=== PATIENT | female | born 1935 | race Caucasian/White ===

== ENCOUNTER 2017-02-20 08:50 | Observation (INO) | payer OTHER ==
[2017-02-20] VITALS (15 sets, daily range): BP systolic 120–166; BP diastolic 65–94; PULSE 56–76; RESP 16–19; TEMP 97.9–98.1; O2SAT 97–100
[~2017-02-20] VITALS: Ht 162.6 cm; Wt 73.5 kg
[2017-02-20] MEDS ORDERED: METO25TA3 PO ×2 (09:37→13:46)
[2017-02-20] MEDS ORDERED: AMLO5TAB2 PO ×2 (09:37→13:46)
[2017-02-20] MEDS ORDERED: SODIUM CHLORIDE 0.9% FLUSH 10 ML FLUSH IVF PRN (09:45)
--- NOTE | 2017-02-20 09:55 | PD ---
HPI Chief Complaint: Pain: Acute or Chronic Time Seen by Provider: 09:45 Travel History International Travel<30 days: No Contact w/Intl Traveler<30days: No Traveled to known affect area: No History of Present Illness HPI 81-year-old female with history of hypertension, recently had a cardiac workup done in [place] where she lives which showed an equivocal stress tests, presents to the ER today for intermittent episodes of chest discomfort which she describes as a burning, palpitations, anxiety, shortness of breath, and nausea. She states that she would not describe the discomfort as a pain. She states that it comes and goes and has subsided currently. She does not know any exacerbating or alleviating factors although she did eat this morning before the symptoms started. She had discussed the discomfort with her son and they had talked briefly with Dr. Hamm and she was told to come to the ER for further evaluation. Patient states that she had recently been put on metoprolol after distress testing and states that she thinks it may be a side effect of the metoprolol. Modifying Factors: None Associated Signs & Symptoms: Substernal discomfort, anxiety, palpitations, shortness of breath, nausea Risk Factors: Hypertension PFSH Past Medical History Hx Anticoagulant Therapy: Yes (asa) Cardiovascular Problems: Yes (htn) High Cholesterol: Yes Diminished Hearing: No Hypertension: Yes Influenza Vaccination: Yes Past Surgical History Gynecologic Surgery: Yes (hysterectomy) Social History Alcohol Use: Yes (social) Tobacco Use: No Substance Use: No Allergies-Medications (Allergen,Severity, Reaction): Coded Allergies: Cipro (Verified Allergy, Severe, chest pain, 02/20/17) Reported Meds & Prescriptions Reported Meds & Active Scripts Active Reported Amlodipine (Amlodipine Besylate) 5 Mg Tab 5 Mg PO DAILY Metoprolol Tartrate 25 Mg Tab 25 Mg PO DAILY Review of Systems Except as stated in HPI: all other systems reviewed are Neg Physical Exam Narrative GENERAL: Pleasant elderly white female patient currently in no acute distress on evaluation. Awake and oriented 3. SKIN: Focused skin assessment warm/dry. HEAD: Atraumatic. Normocephalic. EYES: Pupils equal and round. No scleral icterus. No injection or drainage. ENT: No nasal bleeding or discharge. Mucous membranes pink and moist. NECK: Trachea midline. No JVD. CARDIOVASCULAR: Regular rate and rhythm. No murmur appreciated. Pulses are present and equal bilaterally. RESPIRATORY: No accessory muscle use. Clear to auscultation. Breath sounds equal bilaterally. GASTROINTESTINAL: Abdomen soft, non-tender, nondistended. Hepatic and splenic margins not palpable. MUSCULOSKELETAL: No obvious deformities. No clubbing. No cyanosis. No edema. NEUROLOGICAL: Awake and alert. No obvious cranial nerve deficits. Motor grossly within normal limits. Normal speech. PSYCHIATRIC: Appropriate mood and affect; insight and judgment normal. Data Data Last Documented VS Vital Signs Date Time Temp Pulse Resp B/P Pulse Ox O2 Delivery O2 Flow Rate FiO2 02/20/17 11:28 145/65 02/20/17 11:28 73 100 Nasal Cannula 2 02/20/17 09:38 19 02/20/17 08:52 98.1 Orders Electrocardiogram (02/20/17 09:45) B-Type Natriuretic Peptide (02/20/17 09:45) Ckmb (Isoenzyme) Profile (02/20/17 09:45) Complete Blood Count With Diff (02/20/17 09:45) Comprehensive Metabolic Panel (02/20/17 09:45) D-Dimer (02/20/17 09:45) Magnesium (Mg) (02/20/17 09:45) Prothrombin Time / Inr (Pt) (02/20/17 09:45) Act Partial Throm Time (Ptt) (02/20/17 09:45) Troponin I (02/20/17 09:45) Chest, Single Ap (02/20/17 09:45) Ecg Monitoring (02/20/17 09:45) Bilateral Bp Monitoring (02/20/17 09:45) Iv Access Insert/Monitor (02/20/17 09:45) Oximetry (02/20/17 09:45) Oxygen Administration (02/20/17 09:45) Sodium Chloride 0.9% Flush (Ns Flush) (02/20/17 09:45) Admit Order (Ed Use Only) (02/20/17 11:30) Consult Cardiology (02/20/17 ) Place In Observation (02/20/17 ) Vital Signs (Adult) Q4H (02/20/17 11:30) Activity Oob With Assistance (02/20/17 11:30) Protocol Manager / Telemetry .CONTINUOUS (02/20/17 11:30) Diet Npo (02/20/17 Lunch) Sodium Chlor 0.45% 1000 Ml Inj (1/2 Ns 1 (02/20/17 11:30) Sodium Chloride 0.9% Flush (Ns Flush) (02/20/17 11:30) Sodium Chloride 0.9% Flush (Ns Flush) (02/20/17 21:00) Ondansetron Inj (Zofran Inj) (02/20/17 11:30) Troponin I (02/20/17 17:00) Troponin I (02/20/17 23:00) Resp Oxygen Anupam C Titrat 1-4 L (02/20/17 ) Enoxaparin Inj (Lovenox Inj) (02/20/17 11:30) Naloxone Inj (Narcan Inj) (02/20/17 11:30) Labs Laboratory Tests Test 02/20/17 09:45 White Blood Count 9.4 TH/MM3 Red Blood Count 4.76 MIL/MM3 Hemoglobin 13.9 GM/DL Hematocrit 41.1 % Mean Corpuscular Volume 86.3 FL Mean Corpuscular Hemoglobin 29.1 PG Mean Corpuscular Hemoglobin 33.7 % Concent Red Cell Distribution Width 14.0 % Platelet Count 271 TH/MM3 Mean Platelet Volume 8.6 FL Neutrophils (%) (Auto) 71.7 % Lymphocytes (%) (Auto) 22.6 % Monocytes (%) (Auto) 5.0 % Eosinophils (%) (Auto) 0.3 % Basophils (%) (Auto) 0.4 % Neutrophils # (Auto) 6.8 TH/MM3 Lymphocytes # (Auto) 2.1 TH/MM3 Monocytes # (Auto) 0.5 TH/MM3 Eosinophils # (Auto) 0.0 TH/MM3 Basophils # (Auto) 0.0 TH/MM3 CBC Comment DIFF FINAL Differential Comment Prothrombin Time 10.8 SEC Prothromb Time International 1.0 RATIO Ratio Activated Partial 26.1 SEC Thromboplast Time D-Dimer Quantitative (PE/DVT) 0.50 MG/L FEU Sodium Level 140 MEQ/L Potassium Level 3.4 MEQ/L Chloride Level 104 MEQ/L Carbon Dioxide Level 27.9 MEQ/L Anion Gap 8 MEQ/L Blood Urea Nitrogen 12 MG/DL Creatinine 0.77 MG/DL Estimat Glomerular Filtration 72 ML/MIN Rate Random Glucose 104 MG/DL Calcium Level 9.7 MG/DL Magnesium Level 2.2 MG/DL Total Bilirubin 0.7 MG/DL Aspartate Amino Transf 21 U/L (AST/SGOT) Alanine Aminotransferase 23 U/L (ALT/SGPT) Alkaline Phosphatase 112 U/L Total Creatine Kinase 94 U/L Troponin I LESS THAN 0.02 NG/ML B-Type Natriuretic Peptide 49 PG/ML Total Protein 8.1 GM/DL Albumin 4.5 GM/DL MDM Medical Decision Making Medical Screen Exam Complete: Yes Emergency Medical Condition: Yes Medical Record Reviewed: Yes Interpretation(s) Laboratory Tests Test 02/20/17 09:45 Neutrophils (%) (Auto) 71.7 % (16.0-70.0) Potassium Level 3.4 MEQ/L (3.5-5.1) Estimat Glomerular Filtration 72 ML/MIN (>89) Rate Troponin I LESS THAN 0.02 NG/ML (0.02-0.05) Laboratory Tests Test 02/20/17 09:45 Neutrophils (%) (Auto) 71.7 % (16.0-70.0) Potassium Level 3.4 MEQ/L (3.5-5.1) Estimat Glomerular Filtration 72 ML/MIN (>89) Rate Troponin I LESS THAN 0.02 NG/ML (0.02-0.05) Last 24 hours Impressions Chest X-Ray 02/20/17 0945 Signed Impressions: Service Date/Time: Monday, February 20, 2017 09:46 - CONCLUSION: The lungs are clear. Vinicius Stewart MD Differential Diagnosis Chest discomfort, nausea, shortness of breath, palpitations, anxiety dysrhythmias versus ACS versus gastroesophageal reflux versus anxiety attack Narrative Course Lab work is unremarkable. Chest x-ray and EKG is unremarkable. Patient has had a workup which showed equivocal stress test. Case was discussed with Dr. Hamm who would like me to medically admit the patient for catheterization this afternoon. Nothing by mouth. Case was then discussed with Dr. Gallagher for admission. Patient had already taken her own aspirin before she came to the ER full dose 325 mg. Diagnosis Primary Impression: Chest pain Admitting Information Admitting Physician Requests: Admit Ghazal Dunaway MD Feb 20, 2017 09:55
[2017-02-20 10:00] LABS: AUTOMATED NEUTROPHIL # 6.8 TH/MM3 (1.8-7.7); BASOPHIL % 0.4 % (0.0-2.0); EOSINOPHIL % 0.3 % (0.0-4.0); HEMATOCRIT 41.1 % (35.0-46.0); HEMO FLAGS DIFF FINAL; LYMPH % 22.6 % (9.0-44.0); LYMPHOCYTE # 2.1 TH/MM3 (1.0-4.8); MEAN CELL VOLUME 86.3 FL (80.0-100.0); MEAN CORPUSCULAR HEMOGLOBIN 29.1 PG (27.0-34.0); MEAN CORPUSCULAR HGB CONC 33.7 % (32.0-36.0); NEUT % 71.7 % (16.0-70.0); PLATELET COUNT 271 TH/MM3 (150-450); RED BLOOD COUNT 4.76 MIL/MM3 (4.00-5.30); WHITE BLOOD COUNT 9.4 TH/MM3 (4.0-11.0)
--- NOTE | 2017-02-20 10:14 | RADRPT ---
EXAM DATE/TIME: 02/20/2017 09:46 [facility] COMPARISON: No previous studies available for comparison. INDICATIONS : Heaviness in chest, and bilateral posterior shoulder pain. MEDICAL HISTORY : None. SURGICAL HISTORY : None. ENCOUNTER: Initial ACUITY: 2 days PAIN SCORE: 0/10 LOCATION: Bilateral chest FINDINGS: A single view of the chest demonstrates the lungs to be symmetrically aerated without evidence of mas s, infiltrate or effusion. The cardiomediastinal contours are unremarkable. Osseous structures are intact. CONCLUSION: The lungs are clear. Vinicius Stewart MD on February 20, 2017 at 10:12 Board Certified Radiologist. This report was verified electronically.
[2017-02-20 10:17] LABS: ALT (GPT) 23 U/L (10-53); ANION GAP 8 MEQ/L (5-15); AST (GOT) 21 U/L (15-37); BICARBONATE 27.9 MEQ/L (21.0-32.0); BLOOD UREA NITROGEN 12 MG/DL (7-18); CHLORIDE 104 MEQ/L (98-107); GLOMERULAR FILTRATION RATE 72 ML/MIN (>89); MAGNESIUM 2.2 MG/DL (1.5-2.5); POTASSIUM 3.4 MEQ/L (3.5-5.1); SODIUM (NA) 140 MEQ/L (136-145)
[2017-02-20 10:18] LABS: APTT (PATIENT) 26.1 SEC (24.3-30.1); PROTHROMBIN TIME - PATIENT 10.8 SEC (9.8-11.6)
[2017-02-20 10:22] LABS: ALKALINE PHOSPHATASE 112 U/L (45-117); TOTAL BILIRUBIN ADULT 0.7 MG/DL (0.2-1.0)
[2017-02-20 10:31] LABS: CREATINE KINASE 94 U/L (26-192)
[2017-02-20] MEDS ORDERED: ONDANSETRON HCL 4 MG/2 ML VIAL IVP PRN (11:30)
[2017-02-20] MEDS ORDERED: SODIUM CHLOR 0.45% 1000 ML INJ 1,000 ML IV SCH (11:30)
[2017-02-20] MEDS ORDERED: SODIUM CHLORIDE 0.9% FLUSH 10 ML FLUSH IV FLUSH PRN (11:30)
[2017-02-20] MEDS ORDERED: NALOXONE HCL 0.4 MG/ML AMP IV PRN (11:30)
[2017-02-20] MEDS: SODIUM CHLORIDE 0.9% FLUSH 10 ML FLUSH IV FLUSH SCH (12:33)
--- NOTE | 2017-02-20 12:59 | HHI.HP ---
[facility] Service [facility] Primary Care Physician Non-Staff Admission Diagnosis atypical chest pain Diagnoses: Chief Complaint: Nonspecific type pain Travel History International Travel<30 Days: No Contact w/Intl Traveler <30 Da: No Traveled to Known Affected Are: No History of Present Illness This is a 81-year-old female past medical history hypertension and hyperlipidemia who presented with nonspecific type symptoms. She said about a month ago she had left shoulder pain in which she went to the hospital and [place] and had a cardiac workup. Workup included chest x-ray, echo, CT scan which were all negative. Patient was seen as outpatient and had a nuclear stress test done which was relatively negative. Patient stated that after the workup she was put on metoprolol and feels like the metoprolol is causing her symptoms. Patient stated that she would take deep breaths and will feel a sense of weakness around her chest. She stated that she also feels fatigue. Patient stated that this is intermittent and resolves on its own. Patient also had a recent episode of epigastric pain that was described as a burning sensation as if she had acid reflux. Patient stated that lasted all night. She stated that she lost her appetite the last day and she doesn't know why. Patient denies any stress or anxiety. She stated that her mother had history of heart attack at the age of 63 and her father had multiple heart attacks at the age of 60. Deny any tobacco use. Review of Systems Constitutional: DENIES: Diaphoretic episodes, Fatigue, Fever, Weight gain, Weight loss, Chills, Dizziness, Change in appetite, Night Sweats Endocrine: DENIES: Abnorml menstrual pattern, Heat/cold intolerance, Polydipsia , Polyuria, Polyphagia Eyes: DENIES: Blurred vision, Diplopia, Eye inflammation, Eye pain, Vision loss , Photosensitivity, Double Vision Ears, nose, mouth, throat: DENIES: Tinnitus, Hearing loss, Vertigo, Nasal discharge, Oral lesions, Throat pain, Hoarseness, Ear Pain, Running Nose, Epistaxis, Sinus Pain, Toothache, Odynophagia Respiratory: DENIES: Apneas, Cough, Snoring, Wheezing, Hemoptysis, Sputum production, Shortness of breath Cardiovascular: DENIES: Chest pain, Palpitations, Syncope, Dyspnea on Exertion , PND, Lower Extremity Edema, Orthopnea, Claudication Gastrointestinal: DENIES: Abdominal pain, Black stools, Bloody stools, Constipation, Diarrhea, Nausea, Vomiting, Difficulty Swallowing, Anorexia Genitourinary: DENIES: Abnormal vaginal bleeding, Dysmenorrhea, Dyspareunia, Sexual dysfunction, Urinary frequency, Urinary incontinence, Urgency, Hematuria , Dysuria, Nocturia, Vaginal discharge Musculoskeletal: DENIES: Joint pain, Muscle aches, Stiffness, Joint Swelling, Back pain, Neck pain Integumentary: DENIES: Abnormal pigmentation, Pruritus, Rash, Nail changes, Breast masses, Breast skin changes, Nipple discharge Hematologic/lymphatic: DENIES: Bruising, Lymphadenopathy Immunologic/allergic: DENIES: Eczema, Urticaria Neurologic: DENIES: Abnormal gait, Headache, Localized weakness, Paresthesias, Seizures, Speech Problems, Tremor, Poor Balance Psychiatric: DENIES: Anxiety, Confusion, Mood changes, Depression, Hallucinations, Agitation, Suicidal Ideation, Homicidal Ideation, Delusions Past Family Social History Past Medical History Hypertension Hyperlipidemia Past Surgical History Bilateral knee replacement Reported Medications Reported Meds & Active Scripts Active Reported Amlodipine (Amlodipine Besylate) 5 Mg Tab 5 Mg PO DAILY Metoprolol Tartrate 25 Mg Tab 25 Mg PO DAILY Allergies: Coded Allergies: Cipro (Verified Allergy, Severe, chest pain, 02/20/17) Active Ordered Medications Current Medications Sodium Chloride 2 ml 2 ml UNSCH PRN IVF FLUSH AFTER USING IV ACCESS Last administered on 02/20/17 10:43; Start 02/20/17 at 09:45; Stop 02/20/17 at 11:51 ; Status DC Sodium Chloride (1/2 NS 1000 ml Inj) 1,000 ml @ 75 mls/hr [id number] IV Last administered on 02/20/17 12:32; Start 02/20/17 at 11:30 Sodium Chloride (NS Flush) 2 ml UNSCH PRN IV FLUSH FLUSH AFTER USING IV ACCESS ; Start 02/20/17 at 11:30 Sodium Chloride (NS Flush) 2 ml BID IV FLUSH Last administered on 02/20/17 12: 33; Start 02/20/17 at 21:00 Ondansetron HCl (Zofran Inj) 4 mg Q6H PRN IVP NAUSEA OR VOMITING; Start at 11:30 Enoxaparin Sodium (Lovenox Inj) 40 mg Q24H SQ Last administered on 02/20/17t 12 :33; Start 02/20/17 at 13:00 Naloxone HCl (Narcan Inj) 0.4 mg UNSCH PRN IV SEE LABEL COMMENTS; Start at 11:30 Family History Mother history of heart attack the age of 63. Father had a history of heart attacks age of 60s. Social History Patient lives with her in [facility]. Deny any tobacco or illicit drug use. Occasionally drinks a wine glass a week. Physical Exam Vital Signs Vital Signs Date Time Temp Pulse Resp B/P Pulse Ox O2 Delivery O2 Flow Rate FiO2 02/20/17 11:28 145/65 02/20/17 11:28 73 145/65 100 Nasal Cannula 2 02/20/17 11:28 100 Nasal Cannula 2 02/20/17 11:27 76 145/65 02/20/17 09:38 74 19 166/94 100 Room Air 02/20/17 08:52 98.1 75 16 164/82 98 Physical Exam GENERAL: This is a well-nourished, well-developed patient, in no apparent distress. SKIN: No rashes, ecchymoses or lesions. Cool and dry. HEAD: Atraumatic. Normocephalic. No temporal or scalp tenderness. EYES: Pupils equal round and reactive. Extraocular motions intact. No scleral icterus. No injection or drainage. ENT: Nose without bleeding, purulent drainage or septal hematoma. Throat without erythema, tonsillar hypertrophy or exudate. Uvula midline. Airway patent. NECK: Trachea midline. No JVD or lymphadenopathy. Supple, nontender, no meningeal signs. CARDIOVASCULAR: Regular rate and rhythm without murmurs, gallops, or rubs. RESPIRATORY: Clear to auscultation. Breath sounds equal bilaterally. No wheezes , rales, or rhonchi. GASTROINTESTINAL: Abdomen soft, non-tender, nondistended. No hepato-splenomegaly , or palpable masses. No guarding. MUSCULOSKELETAL: Extremities without clubbing, cyanosis, or edema. No joint tenderness, effusion, or edema noted. No calf tenderness. Negative Homans sign bilaterally. NEUROLOGICAL: Awake and alert. Cranial nerves II through XII intact. Motor and sensory grossly within normal limits. Five out of 5 muscle strength in all muscle groups. Normal speech. Laboratory Laboratory Tests Test 02/20/17 09:45 White Blood Count 9.4 Red Blood Count 4.76 Hemoglobin 13.9 Hematocrit 41.1 Mean Corpuscular Volume 86.3 Mean Corpuscular Hemoglobin 29.1 Mean Corpuscular Hemoglobin 33.7 Concent Red Cell Distribution Width 14.0 Platelet Count 271 Mean Platelet Volume 8.6 Neutrophils (%) (Auto) 71.7 Lymphocytes (%) (Auto) 22.6 Monocytes (%) (Auto) 5.0 Eosinophils (%) (Auto) 0.3 Basophils (%) (Auto) 0.4 Neutrophils # (Auto) 6.8 Lymphocytes # (Auto) 2.1 Monocytes # (Auto) 0.5 Eosinophils # (Auto) 0.0 Basophils # (Auto) 0.0 CBC Comment DIFF FINAL Differential Comment Prothrombin Time 10.8 Prothromb Time International 1.0 Ratio Activated Partial 26.1 Thromboplast Time D-Dimer Quantitative (PE/DVT) 0.50 Sodium Level 140 Potassium Level 3.4 Chloride Level 104 Carbon Dioxide Level 27.9 Anion Gap 8 Blood Urea Nitrogen 12 Creatinine 0.77 Estimat Glomerular Filtration 72 Rate Random Glucose 104 Calcium Level 9.7 Magnesium Level 2.2 Total Bilirubin 0.7 Aspartate Amino Transf 21 (AST/SGOT) Alanine Aminotransferase 23 (ALT/SGPT) Alkaline Phosphatase 112 Total Creatine Kinase 94 Troponin I LESS THAN 0.02 B-Type Natriuretic Peptide 49 Total Protein 8.1 Albumin 4.5 Result Diagram: 02/20/1745 02/20/17944 Imaging Last Impressions Chest X-Ray 02/20/17944 Signed Impressions: Service Date/Time: Monday, February 20, 2017 09:46 - CONCLUSION: The lungs are clear. Vinicius Stewart MD Assessment and Plan Assessment and Plan 81-year-old female with hypertension hyperlipidemia who presented with Atypical chest pain -Previous workup is negative. [employer] Helper consulted since patient has extensive family history of heart attacks, and she has hypertension and hyperlipidemia. -Continue with metoprolol at a lower dose. -First set of troponins negative. Will trend troponin and monitor over telemetry. Hypertension/hyperlipidemia -Resume home medication. DVT prophylaxis -Lovenox. Rica Gallagher MD Feb 20, 2017 12:59
[2017-02-20] MEDS ORDERED: ENOXAPARIN SODIUM 40 MG/0.4 ML SYRINGE SQ SCH (13:00)
[2017-02-20] MEDS ORDERED: METOPROLOL TARTRATE 25 MG TAB PO SCH (13:00)
[2017-02-20] MEDS ORDERED: PILL SPLITTER OTHER PRN (13:15)
[2017-02-20] MEDS: amLODIPine BESYLATE 5 MG TAB PO SCH (13:38)
[2017-02-20] MEDS ORDERED: OSTETAB3 (13:46)
[2017-02-20] MEDS ORDERED: ASPI-110 PO (13:46)
[2017-02-20] MEDS ORDERED: ALPR.25 PO (13:46)
[2017-02-20] MEDS ORDERED: VITASPR (13:46)
[2017-02-20] MEDS ORDERED: VITA500T49 PO (13:46)
[2017-02-20] MEDS ORDERED: ATOR20TA15 PO (13:46)
[2017-02-20] MEDS ORDERED: IOHEXOL 350 MG/ML 100 ML BTL (for Cath Lab) OTHER ONE (14:06)
[2017-02-20] MEDS ORDERED: HEPARIN-NS/PF INJ 500 ML ONE (14:07)
[2017-02-20] MEDS ORDERED: MIDAZOLAM HCL 2 MG/2 ML VIAL ONE ×2 (14:09→14:32)
--- NOTE | 2017-02-20 14:34 | EKG ---
Date Performed: 02/20/2017 Time Performed: 10:16:46 PTAGE: 81 years EKG: BASELINE ARTIFACT PRESENT. Sinus rhythm LOW QRS VOLTAGE IN PRECORDIAL LEADS LEFT ANTERIOR FASCICULAR BLOCK POSSIBLE ANTERIOR MYOCARDIAL INFA RCTION ABNORMAL ECG NO PREVIOUS TRACING DOCTOR: César Barrett Interpretating Date/Time 02/20/2017 14:32:37
[2017-02-20] MEDS ORDERED: HEPARIN SODIUM - IV 10,000 UNITS/10 ML VIAL ONE (14:46)
[2017-02-20] MEDS ORDERED: NITROGLYCERIN INJ 5 ML ONE (14:46)
[2017-02-20] MEDS ORDERED: TICAGRELOR 90 MG TAB PO ONE (15:19)
[2017-02-20] MEDS ORDERED: SODIUM CHLOR 0.9% 1000 ML INJ 1,000 ML IV SCH (15:36)
[2017-02-20] MEDS ORDERED: MISC INFORMATION XX ONE (15:45)
[2017-02-20] MEDS ORDERED: ACETAMINOPHEN 325 MG TAB PO PRN (15:45)
--- NOTE | 2017-02-20 16:43 | MB ---
cc: KENNETH W[place] DATE OF CONSULTATION 02/20/17 HISTORY OF PRESENT ILLNESS Ms. Jerez is a very pleasant 81 year old white female with history of hypertension and dyslipidemia. She was seen in [facility] one month ago. She had a stress test, echocardiogram and CT scan which were unremarkable. She presented with recurrent chest pressure and also burning epigastric discomfort. She has family history of heart disease. PAST MEDICAL HISTORY 1. Hypertension 2. Dyslipidemia 3. Bilateral knee replacement No history of diabetes mellitus, coronary artery disease or cerebrovascular accident. MEDICATIONS 1. Metoprolol 25 mg a day 2. Amlodipine 5 mg a day ALLERGIES CIPRO SOCIAL HISTORY The patient does not smoke. She drinks wine occasionally. She is accompanied by her . FAMILY HISTORY Positive for heart disease in both parents. REVIEW OF SYSTEMS Otherwise negative. PHYSICAL EXAMINATION VITAL SIGNS: Blood pressure 121/74, pulse 73 and regular. HEENT: Negative, 2+ carotid upstrokes, no bruits. LUNGS: Clear. HEART: Regular with no murmurs, rubs or gallops ABDOMEN: Soft, no bruits. EXTREMITIES: Without edema, 2+ distal pulses. NEUROLOGIC: Grossly nonfocal. CARDIOLOGY STUDIES Electrocardiogram was reviewed and showed sinus rhythm, left axis, left anterior fascicular block and abnormal RV progression over precordial leads. LABORATORY DATA Hemoglobin 13.9, potassium 3.4, creatinine 0.8. CK and troponin normal. AST and ALT normal. DIAGNOSES 1. Unstable angina 2. Hypertension 3. Dyslipidemia 4. Strong family history of coronary artery disease DISP8 Ms. Jerez will undergo cardiac catheterization and coronary intervention if necessary today. She understands the risks and benefits and wishes to proceed. MD NAEEM Sawyer/ /1:49 PM /4:36 PM ROSELYN
[2017-02-20 17:05] LABS: HDL CHOLESTEROL 96.9 MG/DL (40.0-60.0)
[2017-02-20] MEDS: CARVEDILOL 6.25 MG TAB PO SCH (20:15)
[2017-02-20] MEDS ORDERED: TEMAZEPAM 15 MG CAP PO PRN (21:00)
[2017-02-20] MEDS ORDERED: ATORVASTATIN 40 MG TAB PO SCH (21:00)
--- NOTE | 2017-02-20 23:18 | EKG ---
Date Performed: 02/20/2017 Time Performed: 15:56:54 PTAGE: 81 years EKG: Sinus bradycardia. Left axis deviation Possible anterior infarct - age undetermined Abnorma l ECG PREVIOUS TRACING : 02/20/2017 10.16 Compared to prior tracing no significant change DOCTOR: Jeffy Holt Interpretating Date/Time 02/20/2017 23:17:29
[2017-02-21] VITALS (16 sets, daily range): BP systolic 107–125; BP diastolic 58–74; PULSE 53–68; RESP 16–18; TEMP 97.9–98.4; O2SAT 95–98
[2017-02-21 06:18] LABS: BASOPHIL % 0.6 % (0.0-2.0); EOSINOPHIL # 0.1 TH/MM3 (0-0.4); EOSINOPHIL % 0.9 % (0.0-4.0); HEMATOCRIT 33.9 % (35.0-46.0); HEMO FLAGS DIFF FINAL; LYMPH % 26.3 % (9.0-44.0); LYMPHOCYTE # 1.7 TH/MM3 (1.0-4.8); MEAN CELL VOLUME 86.8 FL (80.0-100.0); MEAN CORPUSCULAR HEMOGLOBIN 28.7 PG (27.0-34.0); MEAN CORPUSCULAR HGB CONC 33.1 % (32.0-36.0); MONO % 9.2 % (0.0-8.0); PLATELET COUNT 187 TH/MM3 (150-450); RED BLOOD COUNT 3.91 MIL/MM3 (4.00-5.30); RED CELL DISTRIBUTION WIDTH 13.8 % (11.6-17.2); WHITE BLOOD COUNT 6.3 TH/MM3 (4.0-11.0)
[2017-02-21 07:15] LABS: BICARBONATE 27.7 MEQ/L (21.0-32.0); POTASSIUM 3.2 MEQ/L (3.5-5.1)
[2017-02-21] MEDS: amLODIPine BESYLATE 5 MG TAB PO SCH (08:58)
[2017-02-21] MEDS: CARVEDILOL 6.25 MG TAB PO SCH (08:58)
[2017-02-21] MEDS: SODIUM CHLORIDE 0.9% FLUSH 10 ML FLUSH IV FLUSH SCH (08:58)
[2017-02-21] MEDS ORDERED: ASPIRIN 81 MG CHEW TAB PO SCH (09:00)
[2017-02-21] MEDS ORDERED: TICAGRELOR 90 MG TAB PO SCH (09:00)
[2017-02-21] MEDS ORDERED: POTASSIUM CHLORIDE 20 MEQ CONTROLLED RELEASE TAB PO ONE (09:00)
[2017-02-21] MEDS ORDERED: FAMOTIDINE 20 MG TAB PO SCH (12:00)
--- NOTE | 2017-02-21 15:37 | PD.CARD.PN ---
Subjective Subjective Remarks No CP or SOB, feels well Objective Medications Current Medications Medications (Trade) Dose Ordered Sig/Andrew Route Start Time Stop Time Status Last Admin (NS Flush) 2 ml UNSCH PRN IV FLUSH 02/20/17 11:30 (NS Flush) 2 ml BID IV FLUSH 02/20/17 21:00 02/21/17 08:58 (Zofran Inj) 4 mg Q6H PRN IVP 02/20/17 11:30 (Narcan Inj) 0.4 mg UNSCH PRN IV 02/20/17 11:30 (Norvasc) 5 mg DAILY PO 02/20/17 13:00 02/21/17 08:58 (Pill Splitter) 1 ea UNSCH PRN OTHER 02/20/17 13:15 (Tylenol) 325 mg Q4H PRN PO 02/20/17 15:45 02/21/17 00:54 (Restoril) 15 mg HS PRN PO 02/20/17 21:00 02/20/17 20:23 (Aspirin Chew) 81 mg DAILY PO 02/21/17 09:00 02/21/17 08:58 (Brilinta) 90 mg BID PO 02/21/17 09:00 02/21/17 08:58 (Coreg) 6.25 mg BID PO 02/20/17 21:00 02/21/17 08:58 (Lipitor) 40 mg HS PO 02/20/17 21:00 02/20/17 20:15 (Pepcid) 20 mg BID PO 02/21/17 12:00 02/21/17 12:50 Vital Signs / I&O Vital Signs Date Time Temp Pulse Resp B/P Pulse Ox O2 Delivery O2 Flow Rate FiO2 02/21/17 13:00 68 02/21/17 12:00 60 02/21/17 11:30 97.9 61 18 120/74 98 02/21/17 11:00 58 02/21/17 10:00 66 02/21/17 09:00 66 02/21/17 08:44 95 21 02/21/17 08:00 56 02/21/17 07:15 98.4 67 18 108/58 98 02/21/17 07:00 57 02/21/17 05:00 58 02/21/17 04:00 98.0 56 16 125/66 96 02/21/17 04:00 53 02/21/17 03:00 56 02/21/17 02:00 59 02/21/17 01:00 58 02/21/17 00:00 97.9 58 16 107/72 96 02/21/17 00:00 63 02/20/17 23:00 58 02/20/17 22:00 62 02/20/17 21:50 98 21 02/20/17 21:00 60 02/20/17 20:00 62 02/20/17 20:00 98.0 72 16 128/77 99 02/20/17 19:00 64 02/20/17 18:00 56 02/20/17 17:00 62 02/20/17 16:18 97.9 67 16 120/70 99 02/20/17 15:40 99 Room Air I/O 02/20/17 02/20/17 02/20/17 02/21/17 02/21/17 02/21/17 07:00 15:00 23:00 07:00 15:00 23:00 Intake Total 240 ml 240 ml Output Total 400 ml Balance -160 ml 240 ml Intake Oral 240 ml 240 ml Output Urine Total 400 ml # Voids 2 Physical Exam GENERAL: In NAD SKIN: Warm and dry. HEAD: Normocephalic. EYES: No scleral icterus. No injection or drainage. NECK: Supple, trachea midline. No JVD or lymphadenopathy. CARDIOVASCULAR: Regular rate and rhythm without murmurs, gallops, or rubs. RESPIRATORY: Breath sounds equal bilaterally. No accessory muscle use. GASTROINTESTINAL: Abdomen soft, non-tender, nondistended. MUSCULOSKELETAL: No cyanosis, or edema. Groin stable Laboratory Laboratory Tests Test 02/20/17 02/20/17 02/21/17 18:00 22:38 05:42 Troponin I 0.05 NG/ML 0.61 NG/ML White Blood Count 6.3 TH/MM3 Red Blood Count 3.91 MIL/MM3 Hemoglobin 11.2 GM/DL Hematocrit 33.9 % Mean Corpuscular Volume 86.8 FL Mean Corpuscular Hemoglobin 28.7 PG Mean Corpuscular Hemoglobin 33.1 % Concent Red Cell Distribution Width 13.8 % Platelet Count 187 TH/MM3 Mean Platelet Volume 8.9 FL Neutrophils (%) (Auto) 63.0 % Lymphocytes (%) (Auto) 26.3 % Monocytes (%) (Auto) 9.2 % Eosinophils (%) (Auto) 0.9 % Basophils (%) (Auto) 0.6 % Neutrophils # (Auto) 4.0 TH/MM3 Lymphocytes # (Auto) 1.7 TH/MM3 Monocytes # (Auto) 0.6 TH/MM3 Eosinophils # (Auto) 0.1 TH/MM3 Basophils # (Auto) 0.0 TH/MM3 CBC Comment DIFF FINAL Differential Comment Sodium Level 140 MEQ/L Potassium Level 3.2 MEQ/L Chloride Level 104 MEQ/L Carbon Dioxide Level 27.7 MEQ/L Anion Gap 8 MEQ/L Blood Urea Nitrogen 15 MG/DL Creatinine 0.67 MG/DL Estimat Glomerular Filtration 85 ML/MIN Rate Random Glucose 91 MG/DL Calcium Level 8.4 MG/DL Total Creatine Kinase 87 U/L Imaging Last Impressions Chest X-Ray 02/20/17 0945 Signed Impressions: Service Date/Time: Monday, February 20, 2017 09:46 - CONCLUSION: The lungs are clear. Vinicius Stewart MD Assessment and Plan Problem List: (1) Unstable angina (2) CAD (coronary artery disease) (3) Dyslipidemia Assessment and Plan No recurrent angina. Continue Brilinta, baby ASA, beta nancy and statin. DC home. F/u w primary eap clinician at home. Lester Hamm MD Feb 21, 2017 15:37
[2017-02-21] MEDS ORDERED: BRIL90TA PO (16:08)
[2017-02-21] MEDS ORDERED: POTA-163 PO (16:08)
[2017-02-21] MEDS ORDERED: CARV6.25 PO (16:08)
[2017-02-21] MEDS ORDERED: RANI150T PO (16:08)
[2017-02-21] MEDS ORDERED: ATOR40TA16 PO (16:08)
--- NOTE | 2017-02-21 16:09 | HHI.DCPOC ---
Discharge Care Plan Diagnosis: (1) CAD (coronary artery disease) (2) Dyslipidemia (3) Chest pain (4) GERD (gastroesophageal reflux disease) Goals to Promote Your Health * To prevent worsening of your condition and complications * To maintain your health at the optimal level Directions to Meet Your Goals Take your medications as prescribed Follow your dietary instruction Follow activity as directed Keep your appointments as scheduled Take your immunizations and boosters as scheduled If your symptoms worsen call your PCP, if no PCP go to Urgent Care Center or Emergency Room Smoking is Dangerous to Your Health. Avoid second hand smoke Call the 24-hour hour crisis hotline for domestic abuse at Rcia Gallagher MD Feb 21, 2017 16:09
--- NOTE | 2017-02-21 16:09 | HHI.DS ---
Discharge Summary Admission Date Feb 20, 2017 at 11:33 Discharge Date: Feb 21, 2017 Admitting Diagnosis atypical chest pain (1) Chest pain ICD Code: R07.9 Diagnosis: Principal (2) GERD (gastroesophageal reflux disease) ICD Code: K21.9 Diagnosis: Principal (3) CAD (coronary artery disease) ICD Code: I25.10 Diagnosis: Principal (4) Dyslipidemia ICD Code: E78.5 Diagnosis: Secondary Procedures cardiac catheterization with ALLEN at . Brief History - From Admission This is a 81-year-old female past medical history hypertension and hyperlipidemia who presented with nonspecific type symptoms. She said about a month ago she had left shoulder pain in which she went to the [facility] and [place] and had a cardiac workup. Workup included chest x-ray, echo, CT scan which were all negative. Patient was seen as outpatient and had a nuclear stress test done which was relatively negative. Patient stated that after the workup she was put on metoprolol and feels like the metoprolol is causing her symptoms. Patient stated that she would take deep breaths and will feel a sense of weakness around her chest. She stated that she also feels fatigue. Patient stated that this is intermittent and resolves on its own. Patient also had a recent episode of epigastric pain that was described as a burning sensation as if she had acid reflux. Patient stated that lasted all night. She stated that she lost her appetite the last day and she doesn't know why. Patient denies any stress or anxiety. She stated that her mother had history of heart attack at the age of 63 and her father had multiple heart attacks at the age of 60. Deny any tobacco use. CBC/BMP: 02/21/17 0542 02/21/17 0542 Significant Findings Laboratory Tests Test 02/20/17 02/20/17 02/21/17 09:45 22:38 05:42 Neutrophils (%) (Auto) 71.7 % (16.0-70.0) Potassium Level 3.4 MEQ/L 3.2 MEQ/L (3.5-5.1) (3.5-5.1) Estimat Glomerular Filtration 72 ML/MIN (>89) 85 ML/MIN (>89) Rate Troponin I LESS THAN 0.02 0.61 NG/ML NG/ML (0.02-0.05) (0.02-0.05) HDL Cholesterol 96.9 MG/DL (40.0-60.0) Red Blood Count 3.91 MIL/MM3 (4.00-5.30) Hemoglobin 11.2 GM/DL (11.6-15.3) Hematocrit 33.9 % (35.0-46.0) Monocytes (%) (Auto) 9.2 % (0.0-8.0) Calcium Level 8.4 MG/DL (8.5-10.1) Imaging Last Impressions Chest X-Ray 02/20/17 7089 Signed Impressions: Service Date/Time: Monday, February 20, 2017 09:46 - CONCLUSION: The lungs are clear. Vinicius Stewart MD PE at Discharge gen NAD CV rrr. no r/m/g Abd soft ND. + TTP in the epigastric area. resp CTA B/L Pt update on day of discharge f/u for nonspecific symptoms. patient stated she was so hopeful after the catheterization and thought she was doing well, but after eating breakfast this morning her symptoms can back again. She stated she felt a sensation in the epigastric area they work it way up. She stated this happened twice this morning and thinks that the carvedilol is causing the symptoms. patient did noticed association with food today. Denied any CP, SOB, or palpitations.. Hospital Course 81-year-old female with hypertension hyperlipidemia who presented with Atypical chest pain -Previous workup is negative. Daycare Assistant consulted since patient has extensive family history of heart attacks, and she has hypertension and hyperlipidemia. -she had cardiac catheterization on 02/20 in which OM was stented wt ALLEN. 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 -First set of troponin negative, but trended up after the procedure. elevation due to procedure. -after the catheterization she continues to have the same symptoms. most likely due to combination of GERD/gastritis and anxiety. Patient agreed to treat empirically with ranitidine. she will f/u with her PCP in regards to this. CAD -s/p ALLEN of OM. -patient put on ASA 81 mg daily, Brilinta, statin dosage was increased, and carvedilol. hypokalemia -patient given KCL in hospital and discharge on 20 meq daily per recommendation of Daycare Assistant. Hypertension/hyperlipidemia -amlodipine was continued. statin increased, Pt Condition on Discharge: Stable Discharge Disposition: Discharge Home Discharge Time: > 30 minutes Discharge Instructions DIET: Follow Instructions for: Heart Healthy Diet Activities you can perform: Regular-No Restrictions Other Activity Instructions: as directed by your Daycare Assistant. Follow up Referrals: Cardiology - 1 Week PCP Follow-up - 1 Week New Medications: Potassium Chloride ER (Potassium Chloride ER) 20 Meq Tab 20 MEQ PO DAILY Electrolyte Replacement #30 Ref 0 TAB Ranitidine (Ranitidine) 150 Mg Tab 150 MG PO BID Heartburn Management #60 Ref 0 TAB Atorvastatin (Atorvastatin) 40 Mg Tab 40 MG PO HS CAD #30 Ref 0 TAB Carvedilol (Coreg) 6.25 Mg Tab 6.25 MG PO BID CAD #60 Ref 0 TAB Ticagrelor (Brilinta) 90 Mg Tab 90 MG PO BID CAD #60 Ref 0 TAB Continued Medications: Alprazolam (Xanax) 0.25 Mg Tab 0.25 MG PO HS PRN ANXIETY Ref 0 TAB Amlodipine (Amlodipine) 5 Mg Tab 5 MG PO DAILY Blood Pressure Management #[address] (Aspirin 81) 81 Mg Tabdr 81 MG PO DAILY Ref 0 TAB Cholecalciferol (Vitamin D3) 1,000 Unit/Magdalena Magdalena #2 Cyanocobalamin (Vitamin B12) 500 Mcg Tab 500 MCG PO DAILY #2 BOTTLE Glucosamine-Chondroitin (Osteo Bi-Flex Regular Strength) 250-200 Tab Discontinued Medications: Atorvastatin (Atorvastatin) 20 Mg Tab 20 MG PO HS Cholesterol Management #30 Ref 0 TAB Metoprolol Tartrate (Metoprolol Tartrate) 25 Mg Tab 25 MG PO DAILY #30 Ref 0 TAB Rica Gallagher MD Feb 21, 2017 16:09
--- NOTE | 2017-02-21 22:16 | EKG ---
Date Performed: 02/21/2017 Time Performed: 06:44:44 PTAGE: 81 years EKG: Sinus rhythm Left anterior fascicular block Septal ST changes are nonspecific Low QRS voltages in precordial lead s Borderline ECG PREVIOUS TRACING : 02/20/2017 15.56 Compared to prior tracing no significant change DOCTOR: Jeffy Holt Interpretating Date/Time 02/21/2017 22:15:11
--- NOTE | 2017-02-22 11:37 | MR ---
cc: KENNETH WASHINGTON DATE 02/20/2017 INDICATIONS Unstable angina, class IV angina. PROCEDURE PERFORMED 1. Retrograde left heart catheterization with left ventriculography and selective coronary angiography. 2. Angioplasty and stenting of the first obtuse marginal artery. 3. Moderate sedation. ACCESS SITE Right femoral artery EQUIPMENT USED 5 Dutch pigtail catheter, 5 Dutch JL4 and AR modified coronary artery catheters. XB LAD guide, marker wire, 2.0 x 10 mm balloon for predilatation, 2.5 x 14 mm Resolute stent at 10 atmospheres, post-dilated with 2.5 x 8 mm noncompliant balloon at 16 atmospheres. MEDICATIONS Versed, IV Fentanyl, IV heparin, IV nitroglycerin IC, Brilinta 180 mg p.o. CONTRAST Omnipaque 180 cc BLOOD LOSS Less than 10 cc COMPLICATIONS None METHOD OF HEMOSTASIS Angio-Seal closure RESULTS-HEMODYNAMICS Heart rate 70 beats per minute Left ventricular end-diastolic pressure 60 mmHg Left ventricle 130/6 Aorta 130/67/100 LEFT VENTRICULOGRAPHY Ejection fraction 55%. Wall motion normal. No mitral regurgitation. CORONARY ANGIOGRAPHY Left main coronary artery patent. Left anterior descending artery is patent. D-1 patent Left circumflex artery is patent. OM-1 is a large vessel with 90% proximal stenosis. OM-2 is patent. Right coronary artery is a dominant vessel which is patent. PDA is patent. PLV patent. There was no change in OM-1 stenosis with IC nitroglycerin. Lesion length 10 mm. Pre-TRACY flow 3, post-TRACY flow is 3, post stenosis is 0. POST INTERVENTION ANGIOGRAPHY RESULTS Excellent patency of the stented segment and no evidence of dissection, thrombosis or distal embolization. DIAGNOSIS 1. Unstable angina 2. Coronary artery disease with severe 90% stenosis of a large first obtuse marginal artery. 3. Overall preserved left ventricular systolic function. 4. Successful angioplasty and stenting of the first obtuse marginal artery. DISPOSITION Ms. Jerez will continue her current medical program including therapy with Brilinta for one year and baby aspirin indefinitely. We will continue and intensify aggressive modification of her cardiac risk factors. She will be discharged home tomorrow if stable. She will follow up with her co founder and director at home after discharge. MD NAEEM Sawyer/DI /3:34 PM /11:27 AM ROSELYN
== END 2017-02-21 15:00 | disposition home or self-care (01) ==
LOC: NEPC 08:50 → NEDA 11:33 → HCIN 16:14
PROVIDERS: ADMIT Family Medicine; ATTEND Family Medicine
DX: I25.110 Atherosclerotic heart disease of native coronary artery with unstable angina pectoris (principal); I10 Essential (primary) hypertension; E78.5 Hyperlipidemia, unspecified; K21.9 Gastro-esophageal reflux disease without esophagitis; E87.6 Hypokalemia; E78.00 Pure hypercholesterolemia, unspecified; Z96.653 Presence of artificial knee joint, bilateral; Z88.1 Allergy status to other antibiotic agents
CPT/HCPCS: 71010; 80048; 80053; 80061; 82550; 83735; 83880; 84484; 85002; 85025; 85379; 85610; 85730; 92928; 93005; 93458; 99285; C1725; C1760; C1769; C1874; C1887; C1893; G0269; G0378; J1644; J1650; J2250; J3010; J7030; Q9967